=== PATIENT | female | born 1935 | race African-American/Black ===

== ENCOUNTER 2019-03-01 21:16 | Emergency (ER) | payer OTHER ==
[~2019-03-01] VITALS: Ht 170.2 cm; Wt 63.0 kg
[~2019-03-01 21:16] MED LIST: ALLO100T MT; ASPI-1393 MT; CARV12.545 MT; CINA30 MT; CINA30 PO; LEVO125T8 MT; LOSA25TA26 MT; NEPVIT MT; NORT10CA MT; NPH,100V SQ; SEVE800T8 MT; SIMV20TA6 MT
[2019-03-01 22:55] VITALS: BP 112/58
== END 2019-03-01 22:55 | disposition home or self-care (01) ==
LOC: ER 21:16
DX: T82.838A Hemorrhage due to vascular prosthetic devices, implants and grafts, initial encounter (principal); J44.9 Chronic obstructive pulmonary disease, unspecified; E11.9 Type 2 diabetes mellitus without complications; I11.9 Hypertensive heart disease without heart failure; N28.9 Disorder of kidney and ureter, unspecified; I51.9 Heart disease, unspecified; D64.9 Anemia, unspecified; Z79.4 Long term (current) use of insulin; Z88.8 Allergy status to other drugs, medicaments and biological substances; Z88.6 Allergy status to analgesic agent; Z88.5 Allergy status to narcotic agent; Z88.1 Allergy status to other antibiotic agents; Z79.82 Long term (current) use of aspirin; Z79.899 Other long term (current) drug therapy
CPT/HCPCS: 99283